=== PATIENT | female | born 1940 | race Caucasian/White ===

== ENCOUNTER → 2016-12-03 | Outpatient (CLI) | payer OTHER ==
[~2016-12-03] MED LIST: AMARYL 2MG TABLE2 MG PO; AMARYL4 MG PO
== END ==
LOC: LAB 09:16
DX: E11.9 Type 2 diabetes mellitus without complications (principal)
CPT/HCPCS: 36415; 80069; 83036

== ENCOUNTER → 2020-10-06 | Day surgery (SDC) | payer MEDICARE, SELFPAY ==
[~2020-10-06] MED LIST changes: +AMOXICILLIN500 M1 PO; +ASPIRIN 325MG325 MG PO; +BACTRIM DS TAB1 EACH PO; +CEFUROXIME500 MG PO; +CILOSTAZOL50 MG PO; +CLARITHROMYCIN500 MG PO; +GABAPENTIN300 MG PO; +GABAPENTIN400 MG PO; +GLUCOPHAGE 500500 MG PO; +GLUCOPHAGE1000 MG PO; +HYDRALAZINE HCL25 MG PO; +KEFLEX CAP 500500 MG PO; +LEVOTHYROXINE88 MCG PO; +LOPRESSOR 25 MG25 MG PO; +LOSARTAN-HCTZ1 EAC1 PO; +PROTONIX 20 MG20 MG PO; +VIBRAMYCIN 100100 MG PO; +VIBRAMYCIN100 MG PO; +ZYLOPRIM 100 M100 MG PO; +ZYRTEC10 MG PO
== END | disposition home or self-care (01) ==
LOC: OR 06:09
DX: D12.2 Benign neoplasm of ascending colon (principal); K64.0 First degree hemorrhoids; K21.9 Gastro-esophageal reflux disease without esophagitis; D50.9 Iron deficiency anemia, unspecified; I10 Essential (primary) hypertension; E11.9 Type 2 diabetes mellitus without complications; Z79.84 Long term (current) use of oral hypoglycemic drugs; Z79.899 Other long term (current) drug therapy
CPT/HCPCS: 82962; J2704; J7040

== ENCOUNTER 2021-01-09 11:42 | Emergency (ER) | payer MEDICARE, SELFPAY ==
[~2021-01-09 11:42] MED LIST changes: -AMOXICILLIN500 M1 PO; -CLARITHROMYCIN500 MG PO; -VIBRAMYCIN100 MG PO
[2021-01-09 12:47] LABS: HEMOGLOBIN 11.2 gm/dl (12.3-15.3); RED BLOOD COUNT 4.08 M/UL (4.00-5.10); WHITE BLOOD COUNT 7.2 K/UL (4.5-11.0)
[2021-01-09 13:08] LABS: BUN/CREATININE RATIO 23 (0-10)
[2021-01-09] MEDS ORDERED: CLARITHROMYCIN500 MG PO (14:16)
[2021-01-09] MEDS ORDERED: AMOXICILLIN500 M1 PO (14:16)
== END 2021-01-09 14:26 | disposition home or self-care (01) ==
LOC: ER1 11:42
PROVIDERS: Student in an Organized Health Care Education/Training Program
DX: K29.70 Gastritis, unspecified, without bleeding (principal); E86.0 Dehydration
CPT/HCPCS: 80053; 81001; 82550; 82553; 83605; 83690; 83735; 83874; 83880; 84100; 84484; 85025; 93005; 99283; J7120

== ENCOUNTER 2021-01-23 09:21 | Emergency (ER) | payer MEDICARE ==
[~2021-01-23 09:21] MED LIST changes: +AMOXICILLIN500 M1 PO; +CLARITHROMYCIN500 MG PO
[2021-01-23 10:44] LABS: HEMOGLOBIN 11.4 gm/dl (12.3-15.3); RED BLOOD COUNT 4.12 M/UL (4.00-5.10); WHITE BLOOD COUNT 12.1 K/UL (4.5-11.0)
[2021-01-23 11:19] LABS: BUN/CREATININE RATIO 26 (0-10)
[2021-01-23] MEDS ORDERED: VIBRAMYCIN100 MG PO (14:34)
== END 2021-01-23 14:45 | disposition home or self-care (01) ==
LOC: ER1 09:21
PROVIDERS: Physician Assistant
DX: K44.9 Diaphragmatic hernia without obstruction or gangrene (principal); K43.9 Ventral hernia without obstruction or gangrene; E86.0 Dehydration; J18.9 Pneumonia, unspecified organism; E11.9 Type 2 diabetes mellitus without complications; I10 Essential (primary) hypertension; Z90.49 Acquired absence of other specified parts of digestive tract; Z90.710 Acquired absence of both cervix and uterus; Z20.822 Contact with and (suspected) exposure to COVID-19
CPT/HCPCS: 71045; 80053; 81001; 82550; 82553; 83874; 84484; 85025; 93005; 99284; U0002

== ENCOUNTER → 2021-10-16 | Outpatient (CLI) | payer MEDICARE ==
[~2021-10-16] MED LIST changes: +VIBRAMYCIN100 MG PO
== END ==
LOC: EROP 13:59
DX: U07.1 COVID-19 (principal); Z23 Encounter for immunization; Z90.2 Acquired absence of lung [part of]; I12.9 Hypertensive chronic kidney disease with stage 1 through stage 4 chronic kidney disease, or unspecified chronic kidney disease; E11.22 Type 2 diabetes mellitus with diabetic chronic kidney disease; N18.9 Chronic kidney disease, unspecified; I25.10 Atherosclerotic heart disease of native coronary artery without angina pectoris
CPT/HCPCS: M0247; Q0247

== ENCOUNTER → 2022-05-10 | Outpatient (CLI) | payer MEDICARE ==
[2022-05-11 04:07] LABS: LDL CHOL. (DIRECT) 103 mg/dL (0-99)
== END ==
LOC: LAB 12:36
PROVIDERS: Family Medicine
DX: I10 Essential (primary) hypertension (principal); E03.9 Hypothyroidism, unspecified
CPT/HCPCS: 36415; 80053; 80061; 84443